=== PATIENT | female | born 1965 | race Caucasian/White ===

== ENCOUNTER 2025-09-16 15:34 | Outpatient (OUT) | payer MEDICARE, SELFPAY ==
--- OUTSIDE RECORDS SUMMARY | 2025-05-26 06:45 | XMS_ITS ---
Author Organization [facility] vices Address [address] [place] [id number] Care Team Providers Care Caseworker Protective Services Name Role Phone Olivia Denton Unavailable [phone] REASON FOR VISIT Insert- L/CD Social History Sex Assigned At : Social History Observation Description Sex Assigned At Female Encounters Encounter Location Date Provider Diagnosis [facility] [address] [place], [place] [phone] 05/26/2025 Olivia Denton Plan Of Treatment No Information Progress Notes * Nae GOODWINB:1965 (59 yo F)Acc No.[id number]:05/26/2025 Dental Note Patient: Kriss HELTON Provider: Sherif Denton DDS :1965 A ge:59 Y S ex:Female Date:05/26/2025 Address:[address] [place], [place] [id number] Subjective: * Chief Complaints: * 1 . Insert- L/CD. * Medical History: Objective: * Vitals: Assessment: Plan: * Treatment: * Billing Information: * Visit Code: * Procedure Codes: * Electronic signature of Fransisca Denton DDS on 09/16/2025 at 03:42 PM EDT Sign off status: Pending * Provider: Sherif Denton DDS Date: 0 05/26/2025 Generated for Miguel eubanks/Hilda/eTransmitting on: 1 03:42 PM EDT
--- OUTSIDE RECORDS SUMMARY | 2025-09-16 15:42 | XMS_ITS | Clinical Summary ---
Author Organization [facility] Address [address] [place] [address] Care Team Providers Care Manager Bench Name Role Phone Neo Vernon MD Primary Care Provider [phone] Allergies Active Allergy Reactions Criticality Noted Date Comments Metronidazole Hives 11/12/2023 Metformin Hcl GI intolerance 11/08/2023 Penicillin G Sodium Anaphylaxis High 11/08/2023 Penicillins 11/12/2023 Medications aspirin 81 MG EC tablet Take 81 mg by mouth in the morning. Active busPIRone (Buspar) 15 MG tabletIndicatio ns:Generalized anxiety disorder TAKE 1 TABLET BY MOUTH TWICE A DAY 180 tablet 3 02/06/20 25 Active baclofen (Lioresal) 20 MG tabletIndicatio ns:Fibromyalgia Take 1 tablet (20 mg) by mouth 3 (three) times a day as needed for muscle spasms 270 tablet 1 02/06/20 25 Active pantoprazole (ProtoNix) 40 MG EC tabletIndicatio ns:Chronic superficial gastritis without bleeding TAKE 1 TABLET BY MOUTH TWICE A DAY 180 tablet 1 03/08/20 25 Active fluticasone (Flonase) 50 MCG/ACT nasal sprayIndication s:Allergic rhinitis due to pollen INSTILL 2 SPRAYS NASALLY DAILY 48 mL 1 03/08/20 25 Active DULoxetine (Cymbalta) [address] capsuleIndicati ons:Major depressive disorder, recurrent, mild TAKE 1 CAPSULE BY MOUTH EVERY DAY 90 capsule 1 03/09/20 25 Active atorvastatin (Lipitor) 40 MG tabletIndicatio ns:Dyslipidemia TAKE 1 TABLET BY MOUTH EVERYDAY AT BEDTIME 90 tablet 1 06/03/20 25 Active Symbicort 80-4.5 MCG/ACT inhalerIndicati ons:Chronic obstructive pulmonary disease, unspecified (HCC) TAKE 2 PUFFS BY MOUTH TWICE A DAY 30.6 each 3 06/28/20 25 Active amitriptyline (Elavil) 75 MG tabletIndicatio ns:Fibromyalgia TAKE 1 TABLET BY MOUTH EVERYDAY AT BEDTIME 30 tablet 5 06/28/20 25 Active albuterol HFA 90 mcg/act inhalerIndicati ons:Chronic obstructive pulmonary disease, unspecified (HCC) Inhale 2 puffs every 4 (four) hours if needed for shortness of breath 8.5 g 5 07/07/20 25 Active methIMAzole (Tapazole) 10 MG tabletIndicatio ns:Graves' disease TAKE 1 TABLET (10 MG) BY MOUTH IN THE MORNING AND BEFORE BEDTIME 180 tablet 1 09/01/20 25 Active methIMAzole (Tapazole) 10 MG tabletIndicatio ns:Graves' disease TAKE 1 TABLET (10 MG) BY MOUTH IN THE MORNING AND BEFORE BEDTIME 180 tablet 1 03/09/20 25 025 Discontinued oxyCODONE-aceta minophen (Percocet) 5-325 MG tabletIndicatio ns:Fibromyalgia Take 1 tablet by mouth 4 (four) times a day as needed for severe pain 120 tablet 07/27/20 25 025 Active Problems Problem Noted Date Diagnosed Date Medicare annual wellness visit, subsequent 05/05 Assessment & Plan (05/05/2025 8:29 AM EDT): Due for labs. Discussed proper diet and regular aerobic exercise. Need aerobic exercise 5-6 days a week for 30 minutes at a time. Smaller portions and limit total calories. Cologuard normal 11/2024. Tetanus every 10 years. Advised not to smoke. Bilateral knee pain 11/12/2023 Type 2 diabetes mellitus wit h hyperglycemia, without long-term current use of insulin 11/12/2023 Assessment & Plan (05/05/2025 8:29 AM EDT): Not checking BS and due for A1C. Stick to ADA diet and limit carbs. Assessment & Plan (11/04/2024 9:48 AM EST): Not checking BS and due for A1C. Stick to ADA diet and limit carbs. Assessment & Plan (05/05/2024 11:07 AM EDT): Not checking BS and due for A1C. Stick to ADA diet and limit carbs. Assessment & Plan (11/12/2023 2:19 PM EST): Not checking BS and due for A1C. Stick to ADA diet and limit carbs. COPD (chronic obstructive pulmonary disease) 11/2023 Assessment & Plan (05/05/2025 8:29 AM EDT): Breathing stable and continue inhalers. Need to quit smoking. Assessment & Plan (11/04/2024 9:47 AM EST): Breathing stable and continue inhalers. Need to quit smoking. Assessment & Plan (11/12/2023 2:17 PM EST): Breathing stable and continue inhalers. Need to quit smoking. DDD (degenerative disc disease), lumbar 11/12/20 23 Degeneration of cervical intervertebral disc 11/2023 Dyslipidemia 11/12/2023 Assessment & Plan (05/05/2024 11:07 AM EDT): Start lipitor. Repeat labs. Edema leg 11/12/2023 Assessment & Plan (11/04/2024 9:47 AM EST): Edema stable and use lasix PRN. Elevate legs PRN. Assessment & Plan (05/05/2024 11:07 AM EDT): Edema stable with lasix and continue. Elevate legs PRN. Assessment & Plan (11/12/2023 2:18 PM EST): Edema stable with lasix and continue. Elevate legs PRN. Fibromyalgia 11/12/2023 Assessment & Plan (11/04/2024 9:48 AM EST): Pain stable and use percocet PRN. Increase activity and walk regularly. Assessment & Plan (05/05/2024 11:07 AM EDT): Pain stable and use percocet PRN. Increase activity and walk regularly. Assessment & Plan (11/12/2023 2:18 PM EST): Pain stable and use percocet PRN. Generalized anxiety disorder 11/12/2023 Assessment & Plan (11/04/2024 9:48 AM EST): Occasional symptoms but tolerable and continue medication. Assessment & Plan (05/05/2024 11:07 AM EDT): Occasional symptoms but tolerable and continue medication. Assessment & Plan (11/12/2023 2:18 PM EST): Occasional symptoms but tolerable and continue medication. Graves' disease 11/12/2023 Major depressive disorder, recurrent episode, mi ld 11/12/2023 Assessment & Plan (11/04/2024 9:48 AM EST): Occasional symptoms but tolerable and continue medication. Assessment & Plan (05/05/2024 11:07 AM EDT): Occasional symptoms but tolerable and continue medication. Assessment & Plan (11/12/2023 2:18 PM EST): Occasional symptoms but tolerable and continue medication. Vitamin D deficiency 11/12/2023 Encounter for long-term (current) use of medicat ions 11/12/2023 Chronic superficial gastritis without bleeding 1 01/13/2023 Assessment & Plan (11/12/2023 2:18 PM EST): Symptoms controlled with protonix and continue. Plantar fasciitis of left foot 11/12/2023 Assessment & Plan (11/12/2023 2:19 PM EST): History and exam suggestive plantar fasciitis. Start prednisone x 5 days for inflammation and pain. Handout with stretches to patient and ice at end of day. Discussed importance of proper supportive shoes. If continue to have problems will need PT and x-ray. May need podiatry for injections. Continue meds as prescribed. If develop new or worsening symptoms contact office. Carpal tunnel syndrome of right wrist 11/08/2023 Right hand paresthesia 11/08/2023 S/P carpal tunnel release 11/08/2023 Resolved Problems Problem Noted Date Diagnosed Date Resolved Date Abnormal mammogram 11/12/2023 3 Encounters Date Type Department Care Team Description 09/01/2025 Refill [facility] [address] [place] [address] Jose Manuel Menedz MD Graves' disease 07/27/2025 Refill [facility] [address] [facility] [facility] [place] [address] Neo Vernon MD Fibromyalgia 07/07/2025 Refill [facility] [address] [facility] [facility] [place] [address] Neo Vernon MD Chronic obstructive pulmonary disease, unspecified (HCC) 07/07/2025 Refill [facility] [address] [facility] [place] [address] Neo Vernon MD Chronic obstructive pulmonary disease, unspecified (HCC) 06/28/2025 Refill [facility] [address] [facility] [place] [address] Neo Vernon MD Fibromyalgia 06/27/2025 Refill [facility] [address] [place] [address] Neo Vernon MD Fibromyalgia 06/26/2025 Refill [facility] [address] [facility] [place] [address] Neo Vernon MD Chronic obstructive pulmonary disease, unspecified (HCC) from Last 3 Months Immunizations Immunization Administration Dates Next Due Pfizer Purple Cap SARS-CoV-2 Vaccination 021,03/20/2021 Family History Medical History Relation Name Comments Hemochromatosis Father Cancer Mother Diabetes Mother Lung disease Mother Relation Name Status Comments Brother 1 Alive Brother 2 Alive Brother 3 Alive Brother 4 Alive Brother 5 Alive Brother 6 Alive Brother 7 Alive Brother 8 Alive Daughter Alive Father Mother Sister 1 Alive Sister 2 Alive Sister 3 Alive Social History Tobacco Use Types Packs/Day Years Used Date Smoking Tobacco: Every Day Cigarettes Last attempted to quit: 1981 Smokeless Tobacco: Never Tobacco Cessation:Counseling Given: Not Answered Alcohol Use Standard Drinks/Week Comments Never 0 (1 standard drink = 0.6 oz pur e alcohol) PHQ-2 Answer Date Recorded Patient Health Questionnaire-2 Score 0 05/05/2025 Comments Unknown Sex and Gender Information Value Date Recorded Sex Assigned at Female 06/12/2024 9:25 AM EDT Legal Sex Female 7:03 PM EDT Gender Identity Female 06/12/2024 9:25 AM EDT Sexual Orientation Not on file Last Filed Vital Signs Vital Sign Reading Time Taken Comments Blood Pressure 130/72 05/05/2025 7:55 AM EDT Pulse 84 05/05/2025 7:55 AM EDT Temperature 36.6 C (97.8 F) 05/05/2025 7:55 AM EDT Respiratory Rate 20 05/05/2025 7:55 AM EDT Oxygen Saturation 93% 05/05/2025 7:55 AM EDT Inhaled Oxygen Concentration - - Weight 73 kg (161 lb) 05/05/2025 7:55 AM EDT Height 165.1 cm (5' 5 ) 05/05/2025 7:55 AM EDT Body Mass Index 26.79 05/05/2025 7:55 AM EDT Plan of Treatment Not on file Insurance [employer] MEDICARE MEDICAID [place] Care Teams Manager Bench Relationship Specialty Start Date End Date Neo Vernon MD PCP - General Family Medicine 05/05/24
--- OUTSIDE RECORDS SUMMARY | 2025-09-16 15:42 | XMS_ITS | Encounter Summary ---
Author Organization [facility] Address [address] [place] [address] Care Team Providers Care Dental Technology Advisor Name Role Phone Neo Vernon MD Primary Care Provider [phone] Neo Vernon MD Primary Care Provider [phone] Reason for Visit * Reason Comments Med Refill Encounter Details Date Type Department Care Team (Late st Contact Info) Description 12/24/2023 Refill [facility] [address] [place] [address] Neo Vernon MD [address] [place] [address] Localized edema Social History Tobacco Use Types Packs/Day Years Used Date Smoking Tobacco: Every Day Cigarettes Last attempted to quit: 1981 Smokeless Tobacco: Never Alcohol Use Standard Drinks/Week Comments Never 0 (1 standard drink = 0.6 oz pur e alcohol) Comments Unknown Sex and Gender Information Value Date Recorded Sex Assigned at Female 06/12/2024 9:25 AM EDT Legal Sex Female 7:03 PM EDT Gender Identity Female 06/12/2024 9:25 AM EDT Sexual Orientation Not on file documented as of this encounter Plan of Treatment Not on file documented as of this encounter Visit Diagnoses Diagnosis Localized edema Edema documented in this encounter Care Teams Dental Technology Advisor Relationship Specialty Start Date End Date Neo Vernon MD PCP - General Family Medicine 10/22/23 05/04/24 Neo Vernon MD PCP - General Family Medicine 05/05/24 documented as of this encounter
--- OUTSIDE RECORDS SUMMARY | 2025-09-16 15:42 | XMS_ITS | Patient Health Record ---
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 Denton's mail box.Sabrina Amy 02/26/2025 11:39:05 AM >Called pt, reviewed approval and scheduled CD series.Sabrina Amy 06/02/2025 04:13:06 PM >Lower CD delivered to pt on 05/31/2025. Marked as completed tx/addressed. Referral Priority Routine Medications Medication SIG (Take, Route, Frequency, Duration) Notes Start Date End Date Status Amitriptyline HCl 75 MG TAKE 1 TABLET BY MOUTH AT BEDTIME Oral; Duration: 30 Days Active Atorvastatin Calcium 40 MG Oral; Duration: 90 Days Active Baclofen 20 MG Oral; Duration: 30 Days Active Pantoprazole Sodium Active oxyCODONE HCl Active Furosemide Active methIMAzole Active Symbicort Active Clotrimazole 10 MG Dissolve 1 ori sl owly Mouth/Throat Five times a day; Duration: 14 days 06/01/2024 Active Aspirin Active Fluticasone Furoate Active Azithromycin 250 MG Oral; Duration: 5 Days Active busPIRone HCl Active Albuterol Sulfate HFA 108 (90 Base) MCG/ACT INHALE 2 PUFFS BY MOUTH EVERY 4 HOURS NEEDED Inhalation; Duration: 25 Days Active Social History Sex Assigned At : Social History Observation Description Sex Assigned At Female PRAPARE Question Answer Notes Date Completed/Updated: 05/19/2025 edysi nt entered data What is your current housing situation? I have housing patient entered data Are you worried about losing your housing? No patient entered data What is the highest level of school that you have finished? High school diploma or GED patient entered data What is your current work situation? Otherwise unemployed but not seeking work (ex. student, retired, disabled, unpaid primary healthcare financial analyst) patient entered data Has lack of transportation k ept you from medical appointments, meetings, work or from getting things needed for daily living? No How often do you see or talk to people that you care about and feel close to? (For example: talking to friends on the phone, visiting friends or family, going to jewish or club meetings) More than 5 times a week patient entered data How stressed are you? Stress is when someone feels tense, nervous, anxious, or can't sleep at night because their mind is troubled A little bit patient entered data In the past year have you sp ent more than 2 nights in a row in a senior care, alf, nursing home center, or juvenile correctional facility? No patient entered data Are you a refugee? No patient en tered data What country are you from? [place] entered data Do you feel physically and emotionally safe where you currently live? Yes patient entered data In the past year, have you b een afraid of your partner or ex-partner? No patient entered data PRAPARE Score: 4 Tobacco Control (Standard) Question Answer Notes Additional Findings: Tobacco user Moderate cigar ette smoker (10-19 cigs/day) Problems Problem Type SNOMED Code ICD Code Onset Dates Problem Status W/U Status Risk Notes Problem Tobacco user (273972048) Cigarette nicotine dependence without complication (F17.210) Active confirmed Problem Body mass index 25-29 - overweight (954318220) BMI 25.0-25.9,adult (Z68.25) Active confirmed Vital Signs Heart Rate 91 /min 05/31/2025 Blood pressure diastolic 75 mm Hg 05/31/2025 Height-cm 162.56 cm 05/31/2025 Weight-kg 73.03 kg 05/31/2025 Height 64 in 05/31/2025 Blood pressure systolic 130 mm Hg 05/31/2025 Weight 161 lbs 05/31/2025 BMI 27.63 kg/m2 05/31/2025 Encounters Encounter Location Date Provider Diagnosis [facility] [address] [place] [id number] 04/28/2025 [facility] Other specified disorders of teeth and supporting structures K08.[address] [facility] [address] [place] [id number] 05/03/2025 [facility] Cigarette nicotine dependence without complication F17.210 and Other specified disorders of teeth and supporting structures K08.[address] [facility] [address] [place] [address] [id number] 05/12/2025 [facility] Other specified disorders of teeth and supporting structures K08.8 [facility] [address] [place] [address] [id number] 05/19/2025 [facility] Other specified disorders of teeth and supporting structures K08.8 [facility] [address] [place] [address] [id number] 05/31/2025 [facility] Encounter for dent al examination and cleaning with abnormal findings Z01.21 and Complete loss of teeth, unspecified cause, class I K08.101 [facility] [address] [place] [address] [id number] 05/31/2025 [facility] Other specified disorders of teeth and supporting structures K08.[address] [facility] [address] [place] [address] [id number] 05/31/2025 [facility] Assessments Encounter Date Diagnosis (ICD Code) Assessment Notes Treatment Notes Treatment Clinical Notes Section Notes 04/28/2025 Other specified disorders of teeth and supporting structures (ICD-10 - K08.8) 05/03/2025 Cigarette nicotine dependence without complication (ICD-10 - F17.210) Patient provided with [id number] phone line. 05/12/2025 Other specified disorders of teeth and supporting structures (ICD-10 - K08.8) 05/19/2025 Other specified disorders of teeth and supporting structures (ICD-10 - K08.8) 05/31/2025 Encounter for dental examination and cleaning with abnormal findings (ICD-10 - Z01.21) 05/31/2025 Other specified disorders of teeth and supporting structures (ICD-10 - K08.8) 05/31/2025 Complete loss of teeth, unspecified cause, class I (ICD-10 - K08.101) 05/03/2025 Other specified disorders of teeth and supporting structures (ICD-10 - K08.8) Plan Of Treatment No Information Insurance Providers Payer Name Payer Address Payer Phone Subscriber Number Group Number Insured Name Patient Relationship to Insured Coverage Start Date Coverage End Date [facility] Dual MCR [address] [place] [address] [id number] [facility] Kriss Deluna Self - patient is the insured 4 DMedicaid Medicare Crossover [address] [place] [address] [id number] Kriss Deluna Self - patient is the insured 4
--- OUTSIDE RECORDS SUMMARY | 2025-09-16 15:42 | XMS_ITS | Clinical Summary ---
Author Organization [employer] [facility] Address [id number] [address] [place] [address] Care Team Providers Care Tool Drawing Checker Name Role Phone Neo Vernon MD Primary Care Provider [phone] Allergies Active Allergy Reactions Criticality Noted Date Comments Metronidazole 06/26/2017 migraines Penicillins 06/26/2017 seizures Medications budesonide-form oterol (SYMBICORT) 80-4.5 mcg/actuation inhaler Inhale 2 puffs 2 (two) times a day. Active tiotropium (SPIRIVA WITH HANDIHALER) 18 mcg per inhalation capsule Place 1 capsule into inhaler and inhale once daily. Active albuterol (PROVENTIL HFA;VENTOLIN HFA) 90 mcg/actuation inhaler Inhale 1 puff every 6 (six) hours as needed for wheezing. Active celecoxib (CeleBREX) 100 mg capsule Take 100 mg by mouth 2 (two) times a day. Active baclofen (LIORESAL) 10 mg tablet Take 10 mg by mouth 3 (three) times a day. Active Active Problems No known active problems Social History Tobacco Use Types Packs/Day Years Used Date Smoking Tobacco: Every Day Smokeless Tobacco: Never Alcohol Use Standard Drinks/Week Comments No 0 (1 standard drink = 0.6 oz pur e alcohol) Childcare Answer Date Recorded Childcare Unknown 05/13/2019 Employment Answer Date Recorded Employment Unknown 05/13/2019 Purpose - Life Answer Date Recorded Purpose and direction in life Unknown Comments No Sex and Gender Information Value Date Recorded Sex Assigned at Not on file Legal Sex Female 11:38 AM EDT Gender Identity Not on file Sexual Orientation Not on file Last Filed Vital Signs Vital Sign Reading Time Taken Comments Blood Pressure 111/45 05/13/2018 10:15 AM EDT Pulse 83 05/13/2018 10:15 AM EDT Temperature 36.7 C (98.1 F) 05/13/2018 7:12 AM EDT Respiratory Rate 16 05/13/2018 7:12 AM EDT Oxygen Saturation 98% 05/13/2018 10:15 AM EDT Inhaled Oxygen Concentration - - Weight 72.6 kg (160 lb) 05/13/2018 7:12 AM EDT Height 162.6 cm (5' 4 ) 05/13/2018 7:12 AM EDT Body Mass Index 27.46 05/13/2018 7:12 AM EDT Plan of Treatment Health Maintenance Due Date Last Done Comments Depression Screening 1977 Tobacco Screening 1977 Adult BMI Screening 1983 DTaP,Tdap and Td Vaccines (1 - Tdap) 1984 Zoster (Shingles) Vaccine (1 of 2) 2015 COVID-19 Vaccine (3 - season) 08/02/202509/2021, 03/20/2021 Influenza Vaccine 08/02/2025 Medical Devices Implanted Type Area Rigger Apprentice Device Identifier Shelf Expiration Date Model / Serial / Lot Breast Marker Description:right side Insurance [id number] Care Teams Tool Drawing Checker Relationship Specialty Start Date End Date Neo Vernon MD PCP - General 07/02/17
--- NOTE | 2025-09-16 15:51 | MM_ITS ---
Patient Name: MILVIA GOODWIN MR#: [id number] : 1965 Exam Date: 09/16/2025 Ordering Doctor: DR LORI ROBLEDO . RADIOLOGY REPORT PROCEDURE: MM TOMOSYNTHESIS SCREENING BI COMPARISON: MG MAMM LT DIAG FU, 07/27/2022. MG MAMM SCREEN 3D KIARA CAD, 07/16/2022. MG MAMM SCREEN 3D KIARA CAD, 05/08/2021. MG MAMM KIARA SCRN W CAD DIG, 01/04/2015. INDICATIONS: Screening Calculator Name NCI Breast Cancer Risk Assessment Tool 5 Year Breast Cancer Risk 1.60% Lifetime Breast Cancer Risk 8.90% Personal Breast Cancer No Personal Ovarian Cancer No Treatments None Family Cancers Brother with lung cancer at age 64; Mother with lung cancer at age 71. LOCATION: [facility] BREAST COMPOSITION: The breasts are heterogeneously dense, which may obscure small masses. FINDINGS: RIGHT BREAST: Clustered microcalcifications 7th centrally and inferiorly in the right breast, increasing compared to the prior exam appeared cyst LEFT BREAST: There is a 1.6 cm focal asymmetry in the retroareolar region slightly inferiorly in the left breast near the 6 o'clock position is 1.7 cm deep to the nipple. DIAGNOSTIC CATEGORY 4--SUSPICIOUS FOR MALIGNANCY. RECOMMENDATIONS: ADDITIONAL MAMMOGRAPHIC VIEWS REQUIRED: BILATERAL BREASTS - magnified views of the right breast its with spot compressed views of the LS stress and ultrasound if necessary is recommended Dictated by: Fritz Fish MD on 09/17/2025 at 10:30 Approved by: Fritz Fish MD on 09/17/2025 at 11:07
== END 2025-09-16 15:35 | disposition home or self-care (01) ==
LOC: MAMMO 15:40
PROVIDERS: PCP Family Medicine; Visit Provider Family Medicine
DX: Z12.31 Encounter for screening mammogram for malignant neoplasm of breast (principal); Z80.1 Family history of malignant neoplasm of trachea, bronchus and lung; R92.8 Other abnormal and inconclusive findings on diagnostic imaging of breast
CPT/HCPCS: 77063; 77067

== ENCOUNTER 2025-10-12 12:22 | Outpatient (OUT) | payer MEDICARE, SELFPAY ==
--- OUTSIDE RECORDS SUMMARY | 2025-05-26 05:45 | XMS_ITS ---
Author Organization [facility] vices Address [address] [place] [id number] Care Team Providers Care Molder Setter Name Role Phone Olivia Denton Unavailable [phone] REASON FOR VISIT Insert- L/CD Social History Sex Assigned At : Social History Observation Description Sex Assigned At Female Encounters Encounter Location Date Provider Diagnosis [facility] [address] [place], [place] [id number] 05/26/2025 Olivia Denton Plan Of Treatment No Information Progress Notes * Nae GOODWINB:1965 (59 yo F)Acc No.[id number]:05/26/2025 Dental Note Patient: Sandhya HELTONnda :?Olivia Denton DDSDOB:1965???Age:59 Y ???Sex:FemaleDate:05/26/2025Phone:[phone]:[address] [place], [place] [id number] Subjective: * Chief Complaints: * 1 . Insert- L/CD. * Medical History: Objective: * Vitals: Assessment: Plan: * Treatment: * Billing Information: * Visit Code: * Procedure Codes: * Electronic signature of Olivia Denton DDS on 10/12/2025 at 12:25 PM EST Sign off status: Pending * Provider: Sherif Denton DDS Date: 0 05/26/2025 Generated for Printing/Faxing/eTransmitting on:?10/12/2025 12:25 PM EST
--- OUTSIDE RECORDS SUMMARY | 2025-10-12 12:25 | XMS_ITS | Clinical Summary ---
Author Organization [facility] Address [address] [place] [address] Care Team Providers Care Technology Applications Engineer Name Role Phone Neo Vernon MD Primary Care Provider [phone] Allergies Active AllergyReactionsCriticalityNoted OrexXcpnmhszExaatxbwfpgsdMqrhi35/26/2017 migraines FiuluyrghlwLrgywicehrmYnva10/26/2017 seizures Medications MedicationSigDispense QuantityRefillsLast FilledStart DateEnd DateStatus albuterol 90 mcg/actuation inhaler Inhale 2 puffs every 4 (four) hours if needed for shortness of breath.01/22/2024 Active amitriptyline (Elavil) 75 mg tablet Take 75 mg by mouth at bedtime.01/22/2024ctive aspirin 81 mg EC tablet Take 81 mg by mouth in the morning.Active Symbicort 80-4.5 mcg/actuation inhaler Inhale 2 puffs in the morning and at bedtime.01/22/2024ctive busPIRone (Buspar) 15 mg tablet Take 15 mg by mouth in the morning and at bedtime.01/22/2024ctive DULoxetine (Cymbalta) [address] capsule Take 60 mg by mouth in the morning.01/22/2024ctive fluticasone (Flonase) 50 mcg/actuation nasal spray Administer 2 sprays into each nostril in the morning.01/22/2024ctive oxyCODONE-acetaminophen (Percocet) 5-325 mg tablet Take 1 tablet by mouth in the morning, at noon, in the evening, and at bedtime. 02/07/2024ctive pantoprazole (ProtoNix) 40 mg EC tablet Take 40 mg by mouth in the morning and at bedtime.01/22/2024ctive furosemide (Lasix) 40 mg tablet Take 40 mg by mouth if needed each day.11/21/2023ctive metoprolol succinate XL (Toprol-XL) 25 mg 24 hr tablet Take 25 mg by mouth in the morning.03/24/2024ctive baclofen (Lioresal) 20 mg tablet Take 20 mg by mouth if needed in the morning, at noon, and at bedtime for muscle spasms.03/24/2024ctive methIMAzole (Tapazole) 10 mg tablet Indications:Graves diseaseTake 2 tablets (20 mg) by mouth in the morning. 60 tablet ctive atorvastatin (Lipitor) 40 mg tablet Take 40 mg by mouth at bedtime.08/28/2024ctive Active Problems ProblemNoted DateDiagnosed GndjBcsjlhxtphnh57 Overview (03/30/2024): Last Assessment & Plan: Pain stable and use percocet PRN. COPD (chronic obstructive pulmonary disease) Overview (03/30/2024): Last Assessment & Plan: Breathing stable and continue inhalers. Need to quit smoking. Degeneration of cervical intervertebral discMajor depressive disorder, recurrent episode, mild Overview (03/30/2024): Last Assessment & Plan: Occasional symptoms but tolerable and continue medication. Vitamin D srkgtpsqgu67arpal tunnel syndrome of right wrist epressionilateral leg pain11/02/2013 03/30/2024 Social History Tobacco UseTypesPacks/DayYears UsedDateSmoking Tobacco: Every DayCigarettes Smokeless Tobacco: Never Tobacco Cessation:Ready to Q uit: Not Asked; Counseling Given: Not Answered Alcohol UseStandard Drinks/WeekCommentsNever0 (1 standard drink = 0.6 oz pure alcohol)UT Safety & EnvironmentAnswerDate RecordedFear of Current or Ex-Partner Not on file01/24/2024Emotionally AbusedNot on file01/24/2024hysically AbusedNot on file01/24/2024Sexually AbusedNot on file01/24/2024hysically or Sexually AbusedNot on file01/24/2024CommentsUnknownSex and Gender Information ValueDate RecordedSex Assigned at BirthNot on fileLegal AntIysmhd81/19/2023 9:11 AM ESTGender IdentityNot on fileSexual OrientationNot on file Last Filed Vital Signs Vital SignReadingTime TakenCommentsBlood Torevxdx479/6011/09/2024 9:03 AM EST Bkqcc626611/09/2024 9:03 AM ESTTemperature--Respiratory Ziws1306 9:28 AM EDTOxygen Xrpykhacgb69%11/09/2024 9:03 AM ESTInhaled Oxygen Concentration-- Yoofpe50.9 kg (154 lb)11/09/2024 9:03 AM CGMQnrcoy076.6 cm (5' 6 )11/09/2024 9:03 AM ESTBody Mass Index24.8611/09/2024 9:03 AM EST Plan of Treatment Health MaintenanceDue DateLast DoneCommentsCT Wgrblildmqcz38/28/1966Colonoscopy 1965FOBT1965Medicare Annual Wellness (AWV)1965Sigmoidoscopy 1965Diabetes: Retinopathy Nfnksqoub82/28/1976Depression Screening 1977Hepatitis B Vaccines (1 of 3 - 19+ 3-dose series)1984 Pneumococcal Vaccine: Pediatrics (0 to 5 Years) and At-Risk Patients (6 to 64 Years) (1 of 2 - PCV)1984Pap Smear1986Adult Injlqmn1912/29/1987 Cervical Cancer Fteovvvrv65/28/1996HPV/Woisrf2412/29/19958807Jzkboixyb23/28/2006Zoster Vaccines (1 of 2)2015Diabetes: Hemoglobin A1C/OVID-19 Vaccine (3 - season)/09/2021, 03/20/2021Influenza Vaccine (#1)2025Diabetes: Urine Protein Rtfhviuzg56FIT11/20/2025 11/20/2024olorectal Cancer Rmbujtkyn08/20/2027FIT-DNAHIB VaccinesAged OutNo longer eligible based on patient's age to complete this topic HPV VaccinesAged OutNo longer eligible based on patient's age to complete this topicIPV VaccinesAged OutNo longer eligible based on patient's age to complete this topicMeningococcal B VaccineAged OutNo longer eligible based on patient's age to complete this topicMeningococcal VaccineAged OutNo longer eligible based on patient's age to complete this topicRotavirus VaccinesAged OutNo longer eligible based on patient's age to complete this topic Procedures Procedure NamePriorityDate/TimeAssociated DiagnosisCommentsMICROALBUMIN, URINE, IXSRWFLhgtyje00/13/2024 1:51 PM EST Type II or unspecified type diabetes mellitus with renal manifestations, uncontrolled(250.42) ([facility]) Need for prophylactic chemotherapy Hyperlipemia HEMOGLOBIN Y9UUgfcbfg97/13/2024 1:51 PM EST Type II or unspecified type diabetes mellitus with renal manifestations, uncontrolled(250.42) (CMS/HCC) Need for prophylactic chemotherapy Hyperlipemia from Last 3 Months or Most Recently Relevant to Health Maintenance Results * Microalbumin, urine, random (11/13/2024 1:51 PM EST)ComponentValueRef Range Test MethodAnalysis TimePerformed AtPathologist SignatureMicroalb, Ur<1mg/dL 11/13/2024 4:25 PM [facility] (Rapid [facility])Microalb/Creat Ratio11/13/2024 4:25 PM [facility] ([facility])Comment:Unable to calculateCreatinine, Ur 36.026 - 299 mg/dL11/13/2024 4:25 PM [facility] ([facility])Specimen (Source)Anatomical Location / LateralityCollection Method / VolumeCollection TimeReceived TimeUrineUrine specimen obtained by clean catch procedure / UnknownNon-blood Collection / Wumqqxg3311/13/2024 1:51 PM EST11/13/2024 2:45 PM EST Narrative Authorizing ProviderResult TypeResult StatusNeo MEDRANO URINE ORDERABLES Final ResultPerforming OrganizationAddressCity/State/ZIP CodePhone Number [facility] ([facility]) [address] [place] [address] * Hemoglobin A1c (11/13/2024 1:51 PM EST)ComponentValueRef RangeTest Method Analysis TimePerformed AtPathologist SignatureHemoglobin A1C5.84.0 - 6.0 % 11/15/2024 9:56 AM [facility] ([facility])Estimated Average Apcluzx125 mg/dL11/15/2024 9:56 AM [facility] ([facility])Specimen (Source) Anatomical Location / LateralityCollection Method / VolumeCollection Time Received TimeBloodVenous blood specimen / UnknownVenipuncture / Unknown 11/13/2024 1:51 PM EST11/13/2024 2:57 PM EST Narrative Authorizing ProviderResult TypeResult StatusNeo MEDRANO BLOOD ORDERABLES Final ResultPerforming OrganizationAddressCity/State/ZIP CodePhone Number [facility] ([facility]) [address] [place] [address] from Last 3 Months or Most Recently Relevant to Health Maintenance Insurance Care Teams Team MemberRelationshipSpecialtyStart DateEnd Date Neo Vernon MD [address] [place] [address] PCP - GeneralFapaly Medicine02/17/24
--- OUTSIDE RECORDS SUMMARY | 2025-10-12 12:26 | XMS_ITS | Clinical Summary ---
Author Organization [email or web address] [facility] Address [id number] [place] [address] Care Team Providers Care Electronic Communications Technician Name Role Phone Neo Vernon MD Primary Care Provider [phone] Allergies Active AllergyReactionsCriticalityNoted OstsUtorduqoJgunmcrquakpe68/26/2017 migraines Mfcpecdbzsu31/26/2017 seizures Medications MedicationSigDispense QuantityRefillsLast FilledStart DateEnd DateStatus budesonide-formoterol (SYMBICORT) 80-4.5 mcg/actuation inhaler Inhale 2 puffs 2 (two) times a day.Active tiotropium (SPIRIVA WITH HANDIHALER) 18 mcg per inhalation capsule Place 1 capsule into inhaler and inhale once daily.Active albuterol (PROVENTIL HFA;VENTOLIN HFA) 90 mcg/actuation inhaler Inhale 1 puff every 6 (six) hours as needed for wheezing.Active celecoxib (CeleBREX) 100 mg capsule Take 100 mg by mouth 2 (two) times a day.Active baclofen (LIORESAL) 10 mg tablet Take 10 mg by mouth 3 (three) times a day.Active Active Problems No known active problems Social History Tobacco UseTypesPacks/DayYears UsedDateSmoking Tobacco: Every DaySmokeless Tobacco: NeverAlcohol UseStandard Drinks/WeekCommentsNo0 (1 standard drink = 0.6 oz pure alcohol)ChildcareAnswerDate GhkmwjprFixbopdyvZgkpslp72/12/2019Employment AnswerDate MushpoiwDwcgfcrmgmYqvkhip90/12/2019Purpose - LifeAnswerDate Recorded Purpose and direction in evzrTsmosnt21/11/2021CommentsNoSex and Gender InformationValueDate RecordedSex Assigned at BirthNot on fileLegal SexFemale 07/07/2015 11:38 AM EDTGender IdentityNot on fileSexual OrientationNot on file Last Filed Vital Signs Vital SignReadingTime TakenCommentsBlood Ktmmkcwx155/4506 10:15 AM EDT Cqftw892505/13/2018 10:15 AM JCAPegnbvmrwrl78.7 ??C (98.1 ??F)05/13/2018 7:12 AM EDTRespiratory Egnd635105/13/2018 7:12 AM EDTOxygen Devxxohdas31%05/13/2018 10:15 AM EDTInhaled Oxygen Concentration--Sxjstn75.6 kg (160 lb)05/13/2018 7:12 AM EDT Bgvmzs067.6 cm (5' 4 )05/13/2018 7:12 AM EDTBody Mass Index27.46005/13/2018 7:12 AM EDT Plan of Treatment Health MaintenanceDue DateLast DoneCommentsDepression Dzgbhruaa23/28/1978Tobacco Xckfyiril86/28/1978Adult BMI Inugkiopo54/28/1984DTaP,Tdap and Td Vaccines (1 - Tdap)1984Zoster (Shingles) Vaccine (1 of 2)2015COVID-19 Vaccine (3 - 2024- season)/09/2021, 03/20/2021Influenza Qqnapep1108/02/2025 Medical Devices ImplantedTypeAreaManufacturerDevice IdentifierShelf Expiration DateModel / Serial / LotBreast MarkerDescription:right side Insurance Care Teams Team MemberRelationshipSpecialtyStart DateEnd Date Neo Vernon MD [facility]07/02/17
--- OUTSIDE RECORDS SUMMARY | 2025-10-12 12:26 | XMS_ITS | Patient Health Record ---
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) Referral Organization [facility] Referring Provider First Name Olivia Referring Provider Last Name Bertin Referring Provider Speciality Dental [facility] Referred Provider Specialty Authorizatio n General Notes Ricarda Bennett 025 10:07:08 AM >Marked as ready to submit.Nidia Cindy 02/03/2025 03:34:24 PM >Per call to [facility] no prior is requried and patient has no history $2500 annual max none used to date ref# [id number] Amy 02/08/2025 03:23:41 PM >Appt series sheet [...] MOUTH AT BEDTIME Oral; Duration: 30 Days ActiveAtorvastatin Calcium 40 MGOral; Duration: 90 DaysActiveBaclofen 20 MGOral; Duration: 30 DaysActivePantoprazole SodiumActiveoxyCODONE HClActiveFurosemide ActivemethIMAzoleActiveSymbicortActiveClotrimazole 10 MGDissolve 1 ori slowly Mouth/Throat Five times a day; Duration: 14 days06/01/2024ctiveAspirinActive Fluticasone FuroateActiveAzithromycin 250 MGOral; Duration: 5 DaysActive busPIRone HClActiveAlbuterol Sulfate HFA 108 (90 Base) MCG/ACTINHALE 2 PUFFS BY MOUTH EVERY 4 HOURS NEEDED Inhalation; Duration: 25 DaysActive Social History Sex Assigned At : Social History Observation Description Sex Assigned At Female PRAPARE Question Answer Notes Date Completed/Updated: 05/19/2025 deysi nt entered data What is your current housing situation? I have housing patient entered data Are you worried about losing your housing? No patient entered data What is the highest level of school that you have finished? High school diploma or GED patient entered data What is your current work situation? Otherwise unemployed but not seeking work (ex. 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 No How often do you see or talk to people that you care about and feel close to? (For example: talkingto friends on the phone, visiting friends or family, going to buddhism or club meetings)More than 5 times a weekpatient entered dataHow stressed are you? Stress is when someone feels tense, nervous, anxious, or can't sleep at nightbecause their mind is troubledA little bitpatient entered data In the past year have you spent more than 2 nights in a row in a skilled nursing, mcfp, group home center, orjuvenile correctional facility?Nopatient entered dataAre you a refugee?Nopatient entered dataWhat country are you from?[place] patient entered dataDo you feel physically and emotionally safe where you currently live?Yespatient entered dataIn the past year, have you been afraid of your partner or ex-partner?Nopatient entered dataPRAPARE Score:4Tobacco Control (Standard) Question Answer Notes Additional Findings: Tobacco user Moderate cigar ette smoker (10-19 cigs/day) Problems Problem Type SNOMED Code ICD Code Onset Dates Problem Status W/U Status Risk Notes Problem Tobacco user (433412116) Cigaret te nicotine dependence without complication (F17.210) ActiveconfirmedProblemBody mass index 25-29 - overweight (635360722)BMI 25.0- 25.9,adult (Z68.25)Activeconfirmed Vital Signs Heart Rate 91 /min 05/31/2025 Blood pressure xvpkaqaqt21 mm Hg05/31/2025Height-cm162.56 cm05/31/2025Weight-kg 73.03 kg05/31/20254615Ypfqrl80 in05/31/2025lood pressure ysbeetlf091 mm Hg 05/31/20258126Rcamuf519 lbs05/31/2025BMI27.63 kg/m205/31/2025 Encounters Encounter Location Date Provider Diagnosis [facility] [address] [place] [address] [id number] 04/28/2025 [facility] Other specified disorders of teeth and supporting structures K08.8 [facility] [address] [place] [address] [id number] 05/03/2025 [facility] Cigarette nicotine dependence without complication F17.210 and Other specified disorders of teeth and supporting structures K08.8 [facility] [address] [place] [address] [id number] 05/12/2025 [facility] Other specified disorders of teeth and supporting structures K08.8 [facility] [address] [place] [address] [id number] 05/19/2025 [facility] Other specified disorders of teeth and supporting structures K08.8 [facility] [address] [place] [address] [id number] 05/31/2025 [facility] Encounter for dent al examination and cleaning with abnormal findings Z01.21 and Complete loss of teeth, unspecified cause, class I K08.101 [facility] [address] [place] [address] [id number] 05/31/2025 [facility] Other specified disorders of teeth and supporting structures K08.8 [facility] [address] [place] [address] [id number] 05/31/2025 [facility] Assessments Encounter Date Diagnosis (ICD Code) Assessment Notes Treatment Notes Treatment Clinical Notes Section Notes 05/03/2025 Cigarette nicotine d ependence without complication (ICD-10 - F17.210) Patient provided with [id number]-MBJA-Now phone line.05/12/2025Other specified disorders of teeth and supporting structures (ICD-10 - K08.8)05/19/2025Other specified disorders of teeth and supporting structures (ICD-10 - K08.8) 05/31/2025Encounter for dental examination and cleaning with abnormal findings (ICD-10 - Z01.21)05/31/2025Other specified disorders of teeth and supporting structures (ICD-10 - K08.8)04/28/2025Other specified disorders of teeth and supporting structures (ICD-10 - K08.8)05/03/2025Other specified disorders of teeth and supporting structures (ICD-10 - K08.8)05/31/2025omplete loss of teeth, unspecified cause, class I (ICD-10 - K08.101) Plan Of Treatment No Information Insurance Providers Payer Name Payer Address Payer Phone Subscriber Number Group Number Insured Name Patient Relationship to Insured Coverage Start Date Coverage End Date [facility] Dental Dual [facility] [address] [place] [address] [id number] [facility] Kriss Deluna Self - patient is the insured DMedicaid Medicare CrossoverPO [address] [place] [id number] Marty Delunaf - patient is the [id number] 2024
--- OUTSIDE RECORDS SUMMARY | 2025-10-12 12:26 | XMS_ITS | Clinical Summary ---
Author Organization [facility] Address [address] [place] [address] Care Team Providers Care Bindery Machine Operator Name Role Phone Neo Vernon MD Primary Care Provider [phone] Allergies Active AllergyReactionsCriticalityNoted PozwZwdvfpdsJeffcxhfqatzxXafgb79/12/2023 Metformin HclGI eohxqtexyzk19/08/2023Penicillin G SodiumAnaphylaxisHigh 1060Nlcyvpspuyi52/12/2023 Medications MedicationSigDispense QuantityRefillsLast FilledStart DateEnd DateStatus aspirin 81 MG EC tablet Take 81 mg by mouth in the morning.Active busPIRone (Buspar) 15 MG tablet Indications:Generalized anxiety disorderTAKE 1 TABLET BY MOUTH TWICE A DAY 180 tablet 5Active baclofen (Lioresal) 20 MG tablet Indications:FibromyalgiaTake 1 tablet (20 mg) by mouth 3 (three) times a day as needed for muscle spasms 270 tablet 5Active pantoprazole (ProtoNix) 40 MG EC tablet Indications:Chronic superficial gastritis without bleedingTAKE 1 TABLET BY MOUTH TWICE A DAY 180 tablet 5Active fluticasone (Flonase) 50 MCG/ACT nasal spray Indications:Allergic rhinitis due to pollenINSTILL 2 SPRAYS NASALLY DAILY 48 mL 5Active DULoxetine (Cymbalta) [address] capsule Indications:Major depressive disorder, recurrent, mildTAKE 1 CAPSULE BY MOUTH EVERY DAY 90 capsule 5Active atorvastatin (Lipitor) 40 MG tablet Indications:DyslipidemiaTAKE 1 TABLET BY MOUTH EVERYDAY AT BEDTIME 90 tablet 1075Active Symbicort 80-4.5 MCG/ACT inhaler Indications:Chronic obstructive pulmonary disease, unspecified (HCC)TAKE 2 PUFFS BY MOUTH TWICE A DAY 30.6 each 3075Active amitriptyline (Elavil) 75 MG tablet Indications:FibromyalgiaTAKE 1 TABLET BY MOUTH EVERYDAY AT BEDTIME 30 tablet 505Active albuterol HFA 90 mcg/act inhaler Indications:Chronic obstructive pulmonary disease, unspecified (HCC)Inhale 2 puffs every 4 (four) hours if needed for shortness of breath 8.5 g 505Active methIMAzole (Tapazole) 10 MG tablet Indications:Graves' diseaseTAKE 1 TABLET (10 MG) BY MOUTH IN THE MORNING AND BEFORE BEDTIME 180 tablet 1105Active Active Problems ProblemNoted DateDiagnosed DateMedicare annual wellness visit, subsequent 05/05/2025 Assessment & Plan (05/05/2025 8:29 AM EDT): Due for labs. Discussed proper diet and regular aerobic exercise. Need aerobic exercise 5-6 days a week for 30 minutes at a time. Smaller portions and limit total calories. Cologuard normal 11/2024. Tetanus every 10 years. Advised not to smoke. Bilateral knee pain11/12/2023Type 2 diabetes mellitus with hyperglycemia, without long-term current use of oijgvqw1611/12/2023 Assessment & Plan (05/05/2025 8:29 AM EDT): [...] and limit carbs. COPD (chronic obstructive pulmonary disease)11/12/2023 Assessment & Plan (05/05/2025 8:29 AM EDT): Breathing stable and continue inhalers. Need to quit smoking. Assessment & Plan (11/04/2024 9:47 AM EST): Breathing stable and continue inhalers. Need to quit smoking. Assessment & Plan (11/12/2023 2:17 PM EST): Breathing stable and continue inhalers. Need to quit smoking. DDD (degenerative disc disease), psfgqf9211/12/2023egeneration of cervical intervertebral disc11/12/20239223Gqiuxdfshhrw33/12/2023 Assessment & Plan (05/05/2024 11:07 AM EDT): Start lipitor. Repeat labs. Edema leg11/12/2023 Assessment & Plan (11/04/2024 9:47 AM EST): Edema stable and use lasix PRN. Elevate legs PRN. Assessment & Plan (05/05/2024 11:07 AM EDT): Edema stable with lasix and continue. Elevate legs PRN. Assessment & Plan (11/12/2023 2:18 PM EST): Edema stable with lasix and continue. Elevate legs PRN. Kbfwhvmnglbi12/12/2023 Assessment & Plan (11/04/2024 9:48 AM EST): Pain stable and use percocet PRN. Increase activity and walk regularly. Assessment & Plan (05/05/2024 11:07 AM EDT): Pain stable and use percocet PRN. Increase activity and walk regularly. Assessment & Plan (11/12/2023 2:18 PM EST): Pain stable and use percocet PRN. Generalized anxiety yxzmqrqj79/12/2023 Assessment & Plan (11/04/2024 9:48 AM EST): Occasional symptoms but tolerable and continue medication. Assessment & Plan (05/05/2024 11:07 AM EDT): Occasional symptoms but tolerable and continue medication. Assessment & Plan (11/12/2023 2:18 PM EST): Occasional symptoms but tolerable and continue medication. Graves' yyqzhth8311/12/2023Major depressive disorder, recurrent episode, mild 11/12/2023 Assessment & Plan (11/04/2024 9:48 AM EST): Occasional symptoms but tolerable and continue medication. Assessment & Plan (05/05/2024 11:07 AM EDT): Occasional symptoms but tolerable and continue medication. Assessment & Plan (11/12/2023 2:18 PM EST): Occasional symptoms but tolerable and continue medication. Vitamin D noyztkdlku44/12/2023Encounter for long-term (current) use of egxwaaenlpa30/12/2023hronic superficial gastritis without tyfypfzp02/12/2023 Assessment & Plan (11/12/2023 2:18 PM EST): Symptoms controlled with protonix and continue. Plantar fasciitis of left foot11/12/2023 Assessment & Plan (11/12/2023 2:19 PM EST): History and exam suggestive plantar fasciitis. Start prednisone x 5 days for inflammation and pain.Handout with stretches to patient and ice at end of day. Discussed importance of proper supportive shoes. If continue to have problems will need PT and x-ray. May need podiatry for injections. Continue meds as prescribed. If develop new or worsening symptoms contact office. Carpal tunnel syndrome of right wrist11/08/2023Right hand yzfvsaqlwfe59/08/2023 S/P carpal tunnel yhspmak9211/08/2023 Resolved Problems ProblemNoted DateDiagnosed DateResolved DateAbnormal qhxhvkria24/12/2023 11/12/2023 Encounters DateTypeDepartmentCare DhscXkzaylefwwp90/01/2025Refill [facility] [address] [place] [id number] Jose Manuel Mendez MD Graves' ogeahmy3107/27/2025Refill [facility] [address] [place] [id number] Neo Vernon MD Fibromyalgiafrom Last 3 Months Immunizations ImmunizationAdministration DatesNext DuePfizer Purple Cap SARS-CoV-2 Vaccination 04/10/2021,03/20/2021 Family History Medical HistoryRelationNameCommentsHemochromatosisFatherCancerMotherDiabetes MotherLung diseaseMotherRelationNameStatusCommentsBrother 1AliveBrother 2Alive Brother 3AliveBrother 4AliveBrother 5AliveBrother 6AliveBrother 7AliveBrother 8 AliveDaughterAliveFatherDeceasedMotherDeceasedSister 1AliveSister 2AliveSister 3 Alive Social History Tobacco UseTypesPacks/DayYears UsedDateSmoking Tobacco: Every DayCigarettesLast attempted to quit: 1982Smokeless Tobacco: Never Tobacco Cessation:Counseling Given: Not Answered Alcohol UseStandard Drinks/WeekCommentsNever0 (1 standard drink = 0.6 oz pure alcohol)PHQ-2AnswerDate RecordedPatient Health Questionnaire-2 Dcuur555 CommentsUnknownSex and Gender InformationValueDate RecordedSex Assigned at IvtwvInhwdu59/12/2024 9:25 AM EDTLegal NzaCdgczt48/15/2023 7:03 PM EDTGender PtlpbcwfReaufg71/12/2024 9:25 AM EDTSexual OrientationNot on file Last Filed Vital Signs Vital SignReadingTime TakenCommentsBlood Zrnrlpjc397/72005/05/2025 7:55 AM EDT Ehlnm576405/05/2025 7:55 AM GYDZkvywldwyhj44.6 ??C (97.8 ??F)05/05/2025 7:55 AM EDTRespiratory Soie065705/05/2025 7:55 AM EDTOxygen Dnvzyuaqhn08%05/05/2025 7:55 AM EDTInhaled Oxygen Concentration--Cwtuhe47 kg (161 lb)05/05/2025 7:55 AM EDT Zieuba276.1 cm (5' 5 )05/05/2025 7:55 AM EDTBody Mass Index26.7905/05/2025 7:55 AM EDT Plan of Treatment Not on file Insurance Care Teams Team MemberRelationshipSpecialtyStart DateEnd Date Neo Vernon MD PCP - GeneralFamily Medicine05/05/24
--- NOTE | 2025-10-12 12:33 | US_ITS ---
Patient Name: MILVIA GOODWIN MR#: [id number] : 1965 Exam Date: 10/12/2025 Ordering Doctor: DR LORI ROBLEDO . RADIOLOGY REPORT PROCEDURE: MM TOMOSYNTHESIS DIAGNOSTIC BI, 10/12/2025, 12:41 US BREAST LT LIMITED, 10/12/2025, 13:31 COMPARISON: MM TOMOSYNTHESIS SCREENING BI, 09/16/2025. MG MAMM LT DIAG FU, 07/27/2022. MG MAMM SCREEN 3D KIARA CAD, 07/16/2022. MG MAMM SCREEN 3D KIARA CAD, 05/08/2021. INDICATIONS: Abnormal Mammogram Bilateral Breast Calculator Name NCI Breast Cancer Risk Assessment Tool 5 Year Breast Cancer Risk 1.60% Lifetime Breast Cancer Risk 8.90% Personal Breast Cancer No Personal Ovarian Cancer No Treatments None Family Cancers Brother with lung cancer at age 64; Mother with lung cancer at age 71. LOCATION: [facility] BREAST COMPOSITION: The breasts are heterogeneously dense, which may obscure small masses. FINDINGS: RIGHT BREAST: No significant suspicious finding. Relatively benign appearing linear calcifications are noted magnified views of the right breast without branching or amorphous features. LEFT BREAST: No significant suspicious finding. Spot compressed images of the left breast show persistent areas of focal asymmetry along the 6 o'clock position. Benign-appearing calcifications are redemonstrated . Limited left breast ultrasound: Within the left breast at the 6 o'clock position there are 2 cystic structures with mildly lobulated margins. These are predominantly anechoic, wider than tall, and lack internal debris or septation. This cyst measure 8 x 8 x 5 millimeters in greatest dimension , 7 x 7 x 3 millimeters greatest dimension, and 2 x 2 x 3 millimeters in greatest dimension. These are consistent with mildly complex cyst. DIAGNOSTIC CATEGORY 3--PROBABLY BENIGN FINDING. THE FOLLOWING FINDING(S) HAS A HIGH PROBABILITY OF A BENIGN ETIOLOGY: RECOMMENDATIONS: SHORT TERM FOLLOW-UP DIAGNOSTIC MAMMOGRAM RIGHT BREAST IN 6 MONTHS. SHORT TERM FOLLOW-UP ULTRASOUND LEFT BREAST IN 6 MONTHS. Dictated by: Fritz Fish MD on 10/12/2025 at 13:55 Approved by: Fritz Fish MD on 10/12/2025 at 13:59
== END 2025-10-12 12:23 | disposition home or self-care (01) ==
LOC: MAMMO 12:22
PROVIDERS: PCP Family Medicine; Visit Provider Family Medicine
DX: R92.8 Other abnormal and inconclusive findings on diagnostic imaging of breast (principal); Z80.1 Family history of malignant neoplasm of trachea, bronchus and lung
CPT/HCPCS: 76642; 77066; G0279